=== PATIENT | male | born 1950 | race American Indian/Alaskan Native ===

== ENCOUNTER 2019-02-17 12:05 | Day surgery (SDC) | payer OTHER ==
[2019-02-17] MEDS ORDERED: DIPRIVAN 10 MG/ML IV ONE ×2 (12:44→14:00)
[2019-02-17] MEDS ORDERED: WATER FOR IRRIG STERILE IR ONE (12:47)
[2019-02-17] MEDS ORDERED: WATER FOR IRRIG STERILE ONE (12:47)
[2019-02-17] MEDS ORDERED: XYLOCAINE MPF 2% ONE (13:00)
[2019-02-17] MEDS ORDERED: NACL 0.9% 1000 ML 1,000 ML IV SCH (13:00)
--- NOTE | 2019-02-17 14:04 | Operative Report ---
Operative Report Operative Report: Procedure: Colonoscopy with multiple submucosal injections, multiple snare polypectomies, multiple hot biopsy polypectomies, multiple polyp ablations, Hemoclip application. Attending physician: Sina Lara M.D. [employer] Coordinator: Sina Lara M.D. Indication: Patient is a 68-year-old male who presents for colonoscopy for colorectal cancer screening. Patient has a past history of colon polyps and also a family history of colon polyps. A colonoscopy is now to evaluate patient so that treatment may be directed based on the findings. Consent: Informed consent was obtained after advising the patient and family regarding nature of this procedure, its indications, potential benefits as well as possible complications including but not limited to bleeding perforation and adverse reaction to medication, infection as well as other cardiopulmonary complications. An informed written and verbal consent was then obtained after due opportunity was provided for questions and answers. Monitoring: Patient was monitored continuously with pulse oximetry and electrocardiographic recordings as well as blood pressure recordings. Vital signs remained stable throughout this procedure with no untoward events. Preoperative assessment: Patient was assessed immediately prior to this procedure for capacity to tolerate monitored anesthesia care and moderate sedation as well as general anesthesia. Patient's ASA classification is 2, Mallampati class is 2, Hyomental distance is 3. Instrument: Olympus video colonoscope Medications: Propofol given intravenously in divided doses. For details please refer to anesthesia records. Description of procedure: Patient was placed in the left lateral decubitus pos ition after achieving sedation, a digital rectal examination was performed following which the colonoscope was introduced into the anal verge and advanced to the cecum which was identified by the ileocecal valve, the appendiceal orifice, as well as by the cecal strap and direct transillumination. The colonoscope was subsequently withdrawn with careful inspection of all mucosal surfaces. Patient tolerated this procedure well and was subsequently taken to the recovery room. The following findings were noted. Findings: The patient had densely adherent thick liquid stool in sections of the colon. In the proximal ascending colon, patient had a diminutive sessile polyp measuring approximately 5 mm. This was removed by hot biopsy polypectomy. Patient had another polyp measuring approximately 8 mm It was sessile. This was elevated with submucosal injection of saline and removed by snare polypectomy and retrieved. A Hemoclip was placed at the polypectomy site. In the mid ascending colon, patient had a semi-pedunculated 1 cm polyp which is removed by snare electrocautery and retrieved. Adjacent to this was another 8 mm to 10 mm polyp which again was elevated with submucosal injection of saline and removed by snare polypectomy and retrieved. There again was another polyp similarly situated, that measured approximately 6 mm. It was removed by hot biopsy polypectomy and retrieved. The patient had significant retained stool in the transverse colon which was irrigated as much as possible. The descending colon was normal. In the sigmoid colon, patient had multiple diminutive polyps. These were removed by hot biopsy polypectomy. There also was a flat 6-8 mm polyp which was elevated with submucosal injection and removed by snare electrocautery and retrieved. In the rectum, patient had a flat 1 cm polyp which was elevated was some injection of saline and of saline, removed by snare polypectomy and retrieved patient also had multiple diminutive polyps in the rectum. About 9 of these polyps measured between 5-6 mm removed by hot biopsy polypectomy and retrieved. 8 of these polyps are diminutive subcentimeter polyps that were flat measuring approximately 3 mm each. These were ablated. Patient has some thick liquid stool in the section of the colon. Patient had a few scattered diminutive diverticula in the sigmoid and descending colon. On the retroflex view of the anal verge, patient had internal hemorrhoids. Impression: Multiple ascending colon polyp status post hot biopsy polypectomy, snare polypectomy, submucosal injection and Hemoclip application Multiple sigmoid colon polyps status post hot biopsy polypectomy and snare polypectomy with submucosal injection of saline. Multiple rectal polyps status post ablation. Multiple rectal polyps status post hot biopsy polypectomy. Rectal polyp status post submucosal injection with snare polypectomy. Diminutive diverticulosis Retained stool Internal hemorrhoids. Internal hemorrhoids. Plan: Follow pathology report of the sigmoid colon biopsies. High-fiber diet. Repeat colonoscopy in 6-12 months
--- NOTE | 2019-02-17 14:05 | Discharge Summary ---
Short Stay Discharge Plan Activity: advance as tolerated Weight Bearing Status: Weight Bear as Tolerated Diet: regular Additional Instructions: Post Sedation D/C Instructions When you return home you may resume your regular diet unless otherwise directed. Go directly home from the hospital and rest quietly. You may resume normal activities tomorrow. Do NOT drive, return to work, operate any machinery or make any important personal or business decisions today. Do NOT drink any alcohol or take nerve or sleeping drugs. They add to the effects of the medicine still present in your body. Follow up with: [facility] [Primary Care Provider] - 7 Days
[2019-02-17 14:23] VITALS: BP 143/48
--- NOTE | 2019-02-17 18:20 | Anesthesia Day of Surgery ---
Anesthesia Day of Surgery - Day of Surgery Patient Examined: Yes Patient H&P Reviewed: Yes Patient is NPO: Yes Beta Blockers: No Cardiac Clearance: No Pulmonary Clearance: No Braden's Test: N/A
--- NOTE | 2019-02-17 18:21 | Anesthesia Consultation ---
Anesthesia Consult and Med Hx - Airway ROM Head & Neck: Adequate Mental/Hyoid Distance: Adequate Mallampati Class: Class II Intubation Access Assessment: Good - Pulmonary Exam CTA: Yes - Cardiac Exam Cardiac Exam: RRR - Pre-Operative Health Status ASA Pre-Surgery Classification: ASA3 Proposed Anesthetic Plan: General, MAC - Cardiovascular System Hx Hypertension: Yes - Endocrine Hx Non-Insulin Dependent Diabetes: Yes
--- NOTE | 2019-02-17 18:21 | Post Anesthesia Evaluation ---
- Post Anesthesia Evaluation Patient Participated: Yes Airway Patent: Yes Stable Respiratory Function: Yes Nausea/Vomiting: No Temp > 96.8F: Yes Pain Manageable: Yes Adequeate Hydration: Yes Anesthesia Complications: No Block Receding Appropriately: Not Applicable Patient on Ventilator: No
== END 2019-02-17 12:06 | disposition home or self-care (01) ==
LOC: GIO 12:05
PROVIDERS: ATTEND Internal Medicine Gastroenterology
DX: Z12.11 Encounter for screening for malignant neoplasm of colon (principal); D12.2 Benign neoplasm of ascending colon; D12.5 Benign neoplasm of sigmoid colon; K62.1 Rectal polyp; K57.30 Diverticulosis of large intestine without perforation or abscess without bleeding; K64.8 Other hemorrhoids; I10 Essential (primary) hypertension; E11.9 Type 2 diabetes mellitus without complications; Z79.899 Other long term (current) drug therapy; Z79.84 Long term (current) use of oral hypoglycemic drugs
CPT/HCPCS: 82962; 88305; J2704; J7030